=== PATIENT | female | born 1960 ===

== ENCOUNTER 2023-05-13 11:15 | Inpatient (IN) | payer OTHER ==
[~2023-05-13] VITALS: Ht 152.4 cm; Wt 104.3 kg
[2023-05-13] MEDS ORDERED: ZOCOR20 MG PO (13:15)
[2023-05-13] MEDS ORDERED: DAFLONEX-XL 11300 MG PO (13:15)
[2023-05-13] MEDS ORDERED: ALLERGY RELIE15.8 ML NASAL (13:16)
[2023-05-13] MEDS ORDERED: LORATADINE10 M1 PO (13:16)
[2023-05-13] MEDS ORDERED: FARXIGA10 MG PO (13:16)
[2023-05-13] MEDS ORDERED: MONTELUKAST SOD10 MG PO (13:17)
[2023-05-13] MEDS ORDERED: ZESTRIL40 M1 PO (13:17)
[2023-05-13] MEDS ORDERED: NIFEDIPINE20 MG PO (13:17)
[2023-05-13] MEDS ORDERED: CHILDREN'S ASPI81 MG PO (13:18)
[2023-05-13] MEDS ORDERED: FLONASE16 GM (13:18)
[2023-05-13] MEDS ORDERED: METFORMIN HCL1000 M2 PO (13:18)
[2023-05-13] MEDS ORDERED: PEPCID AC20 MG PO (13:19)
[2023-05-13] MEDS ORDERED: HUMULIN 70100 UNIT/2 SUBCUTANEO (13:19)
[2023-05-19] MEDS ORDERED: POLYMYXIN B SULFATE 500,000 U VIAL ONE (16:13)
[2023-05-19] MEDS ORDERED: BUPIVACAINE HCL/PF 0.5% 1ML ONE (16:14)
[2023-05-19] MEDS ORDERED: KETOROLAC TROMETHAMINE 60 MG VIAL IM ONE ×2 (16:14→16:47)
[2023-05-19] MEDS ORDERED: TRANEXAMIC ACID 100MG/1ML (1000MG) AMPUL IV ONE (16:14)
[2023-05-19] MEDS ORDERED: CEFAZOLIN SODIUM 1,000 MG VIAL ONE ×2 (16:14→20:33)
[2023-05-19] MEDS ORDERED: LIDOCAINE HCL/EPINEPHRINE 20 ML VIAL IJ ONE (16:14)
[2023-05-19] MEDS ORDERED: BUPIVACAINE HCL/PF 0.5% 30ML ML ONE (16:47)
[2023-05-19] MEDS ORDERED: VANCOMYCIN HCL 1,000 MG VIAL ONE (17:05)
[2023-05-19] MEDS ORDERED: TRANEXAMIC ACID 100MG/1ML (1000MG) AMPUL IV SCH ×2 (18:30)
[2023-05-19] MEDS ORDERED: KETOROLAC TROMETHAMINE 60 MG VIAL IM SCH (18:30)
[2023-05-19] MEDS ORDERED: CEFAZOLIN SODIUM 1,000 MG VIAL IV SCH (18:30)
[2023-05-19] MEDS ORDERED: MORPHINE SULFATE 4 MG/ML VIAL IV SCH (18:30)
[2023-05-19] MEDS ORDERED: LIDOCAINE HCL/EPINEPHRINE 10 ML VIAL IJ SCH (18:30)
[2023-05-19] MEDS ORDERED: POLYMYXIN B SULFATE 500,000 U VIAL IR SCH (18:30)
[2023-05-19] MEDS ORDERED: BUPIVACAINE HCL/PF 0.5% 1ML IJ SCH (18:30)
[2023-05-19] MEDS ORDERED: VANCOMYCIN HCL 1,000 MG VIAL IR SCH (18:30)
[2023-05-19] MEDS ORDERED: POVIDONE-IODINE 3 EA MED..SWAB TOP ONE (19:58)
[2023-05-19] MEDS ORDERED: MORPHINE SULFATE 4 MG/ML VIAL IV ONE (20:45)
[2023-05-19] MEDS ORDERED: MORPHINE SULFATE 4 MG/ML VIAL IV PRN (20:45)
[2023-05-19] MEDS ORDERED: SODIUM CHLORIDE 0.45 % 1,000 ML IV SCH (20:45)
[2023-05-19] MEDS ORDERED: ONDANSETRON HCL 2 MG/ML VIAL IV PRN (20:45)
[2023-05-19] MEDS ORDERED: GENTAMICIN SULFATE 40 MG/ML VIAL IV SCH (21:00)
[2023-05-19] MEDS ORDERED: BUPIVACAINE HCL/PF 0.5% 1ML IJ ONE (21:00)
[2023-05-19] MEDS ORDERED: LIDOCAINE HCL/PF 10 MG/ML AMPUL IJ ONE (21:00)
[2023-05-19 22:13] LABS: HEMATOCRIT 40.5 % (36.0-45.00); HEMOGLOBIN 13.5 g/dL (12.0-15.00); RED BLOOD COUNT 4.68 M/uL (4.00-6.00)
[2023-05-20] MEDS ORDERED: CEFAZOLIN SODIUM 1,000 MG VIAL IV SCH
[2023-05-20 06:45] LABS: HEMATOCRIT 39.9 % (36.0-45.00); HEMOGLOBIN 13.6 g/dL (12.0-15.00); MEAN CELL VOLUME 86.2 fL (80.00-100.00); MEAN CORPUSCULAR HEMOGLOBIN 29.4 pg (27.00-32.0); MEAN CORPUSCULAR HGB CONC 34.1 g/dl (32.0-36.0); PLATELET COUNT 277 K/uL (150-450); RED BLOOD COUNT 4.63 M/uL (4.00-6.00); RED CELL DISTRIBUTION WIDTH 13.9 % (11.5-14.5)
[2023-05-20] MEDS ORDERED: OxyCODONE HCL/APAP UD (PERCOCET) PO PRN (08:15)
[2023-05-20] MEDS ORDERED: IRON FUM,PS/FOLIC/BCOMP,C NO.9 1 CAP CAPSULE PO SCH (09:00)
[2023-05-20] MEDS ORDERED: MONTELUKAST SODIUM 10 MG TABLET PO SCH (09:00)
[2023-05-20] MEDS ORDERED: SENNA/DOCUSATE SODIUM 1 TAB TABLET PO SCH (09:00)
[2023-05-20] MEDS ORDERED: LORATADINE 10 MG TABLET PO SCH (09:00)
[2023-05-20] MEDS ORDERED: RIVAROXABAN 10 MG TAB PO SCH (09:00)
[2023-05-20] MEDS ORDERED: NIFEDIPINE 90 MG TAB.SA.OSM PO SCH (09:00)
[2023-05-20] MEDS ORDERED: LISINOPRIL 40 MG TABLET PO SCH (09:00)
[2023-05-20] MEDS ORDERED: MetFORMIN HCL 1000 MG TABLET PO SCH (09:00)
[2023-05-20] MEDS ORDERED: OxyCODONE HCL ER 10MG TAB (OxyCONTIN) PO SCH (09:00)
[2023-05-20] MEDS ORDERED: BACITRACIN 28.35 GM OINT.TUBE TOP SCH (09:00)
[2023-05-20] MEDS ORDERED: SIMVASTATIN 20 MG TABLET PO SCH (17:00)
[2023-05-21] MEDS ORDERED: OXYC1TAB9 PO (06:36)
[2023-05-21] MEDS ORDERED: BACTRIM DS TAB1 EACH PO (06:36)
[2023-05-21] MEDS ORDERED: XARELTO10 MG PO (06:36)
[2023-05-21] MEDS ORDERED: INTEGRA PLUS C1 EACH PO (06:36)
[2023-05-21 07:41] LABS: HEMATOCRIT 36.7 % (36.0-45.00); HEMOGLOBIN 12.2 g/dL (12.0-15.00); MEAN CORPUSCULAR HEMOGLOBIN 29.3 pg (27.00-32.0); MEAN CORPUSCULAR HGB CONC 33.3 g/dl (32.0-36.0); PLATELET COUNT 242 K/uL (150-450); RED BLOOD COUNT 4.17 M/uL (4.00-6.00)
== END 2023-05-21 22:45 | disposition home or self-care (01) | DRG 470 ==
LOC: O/R 05-19 05:27 → SURG 05-19 10:30 → SURH 05-19 22:05
PROVIDERS: ADMIT Orthopaedic Surgery Sports Medicine; ATTEND Orthopaedic Surgery Sports Medicine
PROC: 0SRD0J9 Replacement of Left Knee Joint with Synthetic Substitute, Cemented, Open Approach (ICD-10-PCS; principal; 2023-05-19 10:30)
DX: M17.12 Unilateral primary osteoarthritis, left knee (principal)

== ENCOUNTER → 2023-05-16 07:29 | Outpatient (CLI) | payer OTHER ==
[~2023-05-16 07:29] MED LIST: ALLERGY RELIE15.8 ML NASAL; CHILDREN'S ASPI81 MG PO; DAFLONEX-XL 11300 MG PO; FARXIGA10 MG PO; FLONASE16 GM; HUMULIN 70100 UNIT/2 SUBCUTANEO; LORATADINE10 M1 PO; METFORMIN HCL1000 M2 PO; MONTELUKAST SOD10 MG PO; NIFEDIPINE20 MG PO; PEPCID AC20 MG PO; ZESTRIL40 M1 PO; ZOCOR20 MG PO
[2023-05-16 08:12] LABS: PH,URINE 5.5 (5.0-8.0); URINE APPEARANCE Clear; URINE BILIRRUBIN Negative (NEGATIVE); URINE BLOOD Negative; URINE COLOR Yellow; URINE LEUKOCYTE Negative; URINE NITRATE Negative; URINE PROTEIN Negative (NEGATIVE); URINE UROBILINOGEN 0.2 E.U./dl
[2023-05-16 08:13] LABS: URINE BACTERIA 4220.3 uL (0.0-1933); URINE EPITHELIAL CELLS 11.5 uL (0.0-38.8); URINE WBC 11.2 uL (0.0-23.2)
[2023-05-16 08:25] LABS: URINE GLUCOSE >=1000 MG/DL (NEGATIVE); URINE RBC 1.1 uL (0.0-20.8)
== END | disposition home or self-care (01) ==
LOC: LAB 07:29
PROVIDERS: ATTEND Internal Medicine
DX: N39.0 Urinary tract infection, site not specified (principal)